=== PATIENT | female | born 1980 | race Caucasian/White ===

== ENCOUNTER 2022-08-03 12:21 | Emergency (ER) | payer BC, SELFPAY ==
[2022-08-03 12:48] VITALS: BP 116/67; PULSE 69; RESP 16; TEMP 36.1; O2SAT 100
--- NOTE | 2022-08-03 13:00 | ED.URI ---
HPI - URI/Sore Throat General Chief Complaint: Upper Respiratory Infection Stated Complaint: congestion,cough Time Seen by Provider: 08/03/22 12:57 Source: patient Mode of arrival: ambulatory Limitations: no limitations History of Present Illness HPI Narrative: Patient is a 41-year-old female presenting with 4 days of ear pain, cough, sore throat, congestion. 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 Denies any headache. Related Data Home Medications Medication Instructions Recorded Confirmed ibuprofen 800 mg tablet 800 mg PO TID 08/03/22 08/03/22 insulin lispro 100 unit/mL See Rx Instructions .Route .COMPLEX 08/03/22 08/03/22 subcutaneous solution (Humalog U-100 Insulin) Allergies Allergy/AdvReac Type Severity Reaction Status Date / Time sulfamethoxazole Allergy Hives Verified 08/03/22 12:50 [From Bactrim] trimethoprim [From Bactrim] Allergy Hives Verified 08/03/22 12:50 Review of Systems Review of Systems: All systems reviewed & are unremarkable except as noted in HPI and below Constitutional: Constitutional: Denies body ache(s), Denies fever(s), Denies headache(s), Denies malaise and Denies weakness Eyes: Eyes: Reports no additional eye complaints and Denies loss of vision ENT: Reports system reviewed and no additional complaints, except as documented, Reports otalgia, Denies headache(s), Reports nasal congestion, Denies sinus pain and Reports sore throat Cardiovascular: Cardiovascular: Reports no additional cardiovascular complaints, Denies chest pain, Denies irregular heart rhythm and Denies dyspnea Respiratory: Respiratory: Reports no additional respiratory complaints, Reports cough and Denies dyspnea Gastrointestinal: Gastrointestinal: Reports no additional gastrointestinal complaints, Denies abdominal pain, Denies melena, Denies hematochezia, Denies diarrhea, Denies nausea and Denies vomiting Musculoskeletal: Musculoskeletal: Reports no additional musculoskeletal complaints, Denies back pain, Denies myalgias and Denies arthralgias Integumentary/Breasts: Skin/Breast: Reports system reviewed and no additional complaints, except as docu, Denies pruritus and Denies rash Neurologic: Reports system reviewed and no additional complaints, except as documented, Denies headache(s), Denies loss of vision and Denies weakness Psychiatric: Psychiatric: Reports no additional psychiatric complaints PMFSH Comments At time of signature, agree with nursing past medical, surgical, social and family history. There is no relevant family history pertinent to the presenting complaint. Exam Const: General: cooperative, healthy appearing, comfortable, no acute distress and well nourished Nutritional Appearance: well nourished Orientation/consciousness: patient oriented x3 Limitations: no limitations HENMT: Head: normal to inspection, normocephalic and atraumatic Ears: external ears normal and TM abnormal bulging bilateral and erythematous bilateral Face/Nose/Sinus: Normal external nose present, normal facial exam, sinuses nontender and face symmetric Face and sinus: normal facial exam, sinuses nontender and face symmetric Mouth: Yes Normal oral and palatal mucosa present, Yes lip normal and Yes moist mucous membranes Teeth and gingiva: dentition normal Throat: posterior oropharynx normal, tonsils normal and uvula midline Eyes: General: appearance normal, both eyes and all related structures Alignment and Position: alignment normal and position normal Periorbital: periorbital findings normal Eyelids: eyelids normal Pupils: Equal, round and reactive pupils present Neck: Neck: normal visual inspection, full ROM and supple Chest: Chest palpation & inspection: normal inspection of the chest and normal palpation of entire chest wall Resp: Effort & Inspection: normal respiratory effort and able to speak in complete sentences Auscultation: clear to auscultation bilaterally, no crackles, no rales, no rhonchi
== END 2022-08-03 13:11 | disposition home or self-care (01) ==
PROVIDERS: Emergency Provider Nurse Practitioner Family
DX: H66.90 Otitis media, unspecified, unspecified ear (principal); Z79.4 Long term (current) use of insulin; Z79.1 Long term (current) use of non-steroidal anti-inflammatories (NSAID)
CPT/HCPCS: 87081; 87880; 99213; G0463

== ENCOUNTER 2023-04-25 08:59 | Emergency (ER) | payer BC, SELFPAY ==
[2023-04-25 09:14] VITALS: BP 121/69; PULSE 69; RESP 20; TEMP 36.4; O2SAT 100
[2023-04-25 09:37] LABS: Glucose Point of Care 198 mg/dl (65-105)
--- NOTE | 2023-04-25 09:45 | ED.GENADULT ---
HPI - General Adult General Chief complaint: Recheck/Abnormal Lab/Rx Stated complaint: High blood sugar Time Seen by Provider: 04/25/23 09:40 Source: patient, RN notes reviewed and old records reviewed Mode of arrival: ambulatory Limitations: no limitations History of Present Illness HPI narrative: 42 year old female presents to [facility] care reporting that her blood sugars have been up and down for the past 24 hours. She states that she awoke today and her Dexcom reading showed HI, she has insulin pump connected to her readings which does dose her along with basal rate. She called her physician and he he told her to go somewhere and get checked out. Patient reports that she has had a little sore throat but no fevers, chills or sweats. Patient reports that she doesn't want to go to the hospital. Presently Dexcom reading 180. Finger stick done in clinic showing 198. Patient reports that she changed site of Dexcom, put in new insulin and does not appear to be any kinks in her system. Patient has not called her director global intelligence which is located in [facility]. Patient reports that she drank latte this morning only. MD complaint: elevated glucose levels Onset (ago): day(s) (intermittently 1 day) Related Data Home Medications Medication Instructions Recorded Confirmed insulin lispro 100 unit/mL See Rx Instructions .Route .COMPLEX 08/03/22 04/25/23 subcutaneous solution (Humalog U-100 Insulin) blood-glucose transmitter (Dexcom 04/25/23 04/25/23 G6 Transmitter device) Allergies Allergy/AdvReac Type Severity Reaction Status Date / Time sulfamethoxazole Allergy Hives Verified 04/25/23 09:07 [From Bactrim] trimethoprim [From Bactrim] Allergy Hives Verified 04/25/23 09:07 Review of Systems Review of Systems: CONSTITUTIONAL: Denies fever, chills, or sweats. EYES: Denies visual changes, redness, or discharge. ENT: Denies rhinorrhea, congestion, mild sore throat, no otalgia. CARDIOVASCULAR: Denies chest pain, palpitations, or edema. RESPIRATORY: Denies cough or dyspnea. GASTROINTESTINAL: Denies abdominal pain, nausea, vomiting, or diarrhea. GENITOURINARY: Denies dysuria or hematuria. SKIN: Denies rash or itching. MUSCULOSKELETAL: Some chronic back pain, joint pain, or myalgia. NEUROLOGIC: Denies headache, numbness, or weakness. PSYCHIATRIC: Denies anxiety or depression. 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 There is no relevant family history pertinent to the presenting complaint Exam Narrative: GENERAL: Well-appearing, well-nourished, and in no acute distress. HEAD: Normocephalic, atraumatic. EYES: PERRLA and EOMI. ENT: Nares clear, no rhinorrhea or epistaxis. Mucous membranes moist.TM's normal, throat pink with no swelling some post nasal drainage NECK: Supple. no lymphadenopathy CHEST: Clear to auscultation. No respiratory distress. no cough noted SAO2 100% on room air HEART: Regular rate and rhythm. No murmur heard. Normal peripheral pulses. ABDOMEN: Soft, nontender, nondistended, normal active bowel sounds, denies any urinary symptoms. EXTREMITIES: Normal range of motion. No edema. SKIN: Warm, dry, no rash. NEURO: No focal deficits. Alert and oriented x3. Course Course Emergency Course: Patient is aware of diagnosis, understands and agrees to treatment plan.? Anticipatory guidance given.? Patient agrees to follow-up
== END 2023-04-25 10:33 | disposition home or self-care (01) ==
PROVIDERS: Emergency Provider Registered Nurse; PCP Family Medicine
DX: E10.65 Type 1 diabetes mellitus with hyperglycemia (principal); Z79.4 Long term (current) use of insulin
CPT/HCPCS: 82948; 87081; 87880; 99213; G0463

== ENCOUNTER 2023-06-08 12:11 | Emergency (ER) | payer BC, SELFPAY ==
--- NOTE | ~2023-06-08 | XR_ITS ---
Left ankle Technique: AP, oblique, and lateral views were obtained. Clinical History: Pain Findings: No acute fracture or dislocation is seen. Osseous alignment is anatomic. Ankle mortise and other visualized joint spaces are preserved. Soft tissues are otherwise unremarkable. Impression: Unremarkable left ankle. Reviewed, dictated and finalized at location . 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
--- NOTE | ~2023-06-08 | XR_ITS ---
Left foot Technique: AP, oblique, and lateral views were obtained. Clinical History: Pain Findings: No acute fracture or dislocation is seen. Osseous alignment is anatomic. Joint spaces are p reserved without erosive or degenerative change. Soft tissues are unremarkable. Impression: Unremarkable left foot radiographs. Reviewed, dictated and finalized at location . 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
[2023-06-08 12:17] VITALS: BP 96/57; PULSE 75; RESP 16; TEMP 36.6; O2SAT 100
--- NOTE | 2023-06-08 12:24 | ED.LOWEXIN ---
HPI - Extremity Injury (Lower) General Chief Complaint: Extremity Injury, Lower Stated Complaint: INJURED L ANKLE Time Seen by Provider: 06/08/23 12:24 Source: patient Mode of arrival: ambulatory Limitations: no limitations History of Present Illness HPI Narrative: 42-year-old female presents with complaint of pain to lateral aspect of left ankle. Patient states while leaving her son's school today she missed last step and twisted left ankle. Was able to get up on her own. Ambulatory with steady gait. Patient reports history of previous fracture to left ankle and foot over 20 years ago. Patient requesting x-rays. Range of motion and distal neurovascularly intact. All systems reviewed and negative except as noted above. Related Data Home Medications Medication Instructions Recorded Confirmed insulin lispro 100 unit/mL See Rx Instructions .Route .COMPLEX 08/03/22 06/08/23 subcutaneous solution (Humalog U-100 Insulin) blood-glucose transmitter (Dexcom 04/25/23 06/08/23 G6 Transmitter device) Allergies Allergy/AdvReac Type Severity Reaction Status Date / Time sulfamethoxazole Allergy Hives Verified 06/08/23 12:24 [From Bactrim] trimethoprim [From Bactrim] Allergy Hives Verified 06/08/23 12:24 Review of Systems Review of Systems: CONSTITUTIONAL: Denies fever, chills, or sweats. EYES: Denies visual changes, redness, or discharge. ENT: Denies rhinorrhea, congestion, sore throat, or otalgia. CARDIOVASCULAR: Denies chest pain, palpitations, or edema. RESPIRATORY: Denies cough or dyspnea. GASTROINTESTINAL: Denies abdominal pain, nausea, vomiting, or diarrhea. GENITOURINARY: Denies dysuria or hematuria. SKIN: Denies rash or itching. MUSCULOSKELETAL: Denies back pain or myalgia. Reports pain to left ankle. NEUROLOGIC: Denies headache, numbness, or weakness. PSYCHIATRIC: Denies anxiety or depression. All other systems reviewed are negative, except as documented in HPI. 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 There is no relevant family history pertinent to the presenting complaint. Exam Narrative: GENERAL: This is a well-nourished, well-developed patient, in no apparent distress. HEAD: normocephalic, atraumatic. EYES: PERRL. Sclera clear/white. Vision is grossly intact. EARS: External ears normal NOSE: External nose normal NECK: Neck supple, non-tender without lymphadenopathy, masses or thyromegaly. CARDIOVASCULAR: Regular rate and rhythm without murmurs, gallops, or rubs. RESPIRATORY: Clear to auscultation. Breath sounds equal bilaterally. No wheezes, rales, or rhonchi. SKIN: warm, Dry, intact with no suspicious lesions or rash, good texture and turgor. NEURO: awake, alert, and oriented to person, place and time. There were no obvious focal neurologic abnormalities. EXTREMITIES: Tenderness to lateral aspect left ankle and left foot. No swelling or contusion noted. Range of motion and distal neurovascularly intact. Course Course Level of Care: Express Care Visit Vital Signs Vital signs: Vital Signs Temperature 36.6 C 06/08/23 12:17 Pulse Rate 75 06/08/23 12:17 Respiratory Rate 16 06/08/23 12:17 Blood Pressure 96/57 L 06/08/23 12:17 Pulse Oximetry 100 06/08/23 12:17 Temperature 36.6 C 06/08/23 12:17 Pulse Rate 75 06/08/23 12:17 Respiratory Rate 16 06/08/23 12:17 Blood Pressure 96/57 L 06/08/23 12:17 Pulse Oximetry 100
== END 2023-06-08 13:00 | disposition home or self-care (01) ==
PROVIDERS: Emergency Provider Nurse Practitioner Family; PCP Family Medicine
DX: S93.402A Sprain of unspecified ligament of left ankle, initial encounter (principal); S93.602A Unspecified sprain of left foot, initial encounter; E10.9 Type 1 diabetes mellitus without complications; Z79.4 Long term (current) use of insulin; X50.0XXA Overexertion from strenuous movement or load, initial encounter
CPT/HCPCS: 73610; 73630; 99213; G0463

== ENCOUNTER 2023-07-23 08:13 | Emergency (ER) | payer BC, SELFPAY ==
--- NOTE | 2023-07-23 08:15 | ED.URI ---
HPI - URI/Sore Throat General Chief Complaint: Upper Respiratory Infection Stated Complaint: EARS/CHEST Time Seen by Provider: 07/23/23 08:15 Source: patient Mode of arrival: ambulatory Limitations: no limitations History of Present Illness HPI Narrative: Irene is a 42-year-old female patient presenting to the clinic today with complaints of ear discomfort, cough, and chest congestion times 2-3 days. She reports no known fever but has had body aches and chills. States that her chest feels heavy. Related Data Home Medications Medication Instructions Recorded Confirmed insulin lispro 100 unit/mL See Rx Instructions .Route .COMPLEX 08/03/22 07/23/23 subcutaneous solution (Humalog U-100 Insulin) blood-glucose transmitter (Dexcom 04/25/23 07/23/23 G6 Transmitter device) Allergies Allergy/AdvReac Type Severity Reaction Status Date / Time sulfamethoxazole Allergy Hives Verified 06/08/23 12:24 [From Bactrim] trimethoprim [From Bactrim] Allergy Hives Verified 06/08/23 12:24 Review of Systems Review of Systems: Pertinent positives per HPI. Patient denies any fever, rash, headache, visual changes, dizziness, chest pain, palpitations, nausea, vomiting, diarrhea, constipation, abdominal pain, or any urinary issues. 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 There is no relevant family history pertinent to the patient complaint. Exam Narrative: General: Well-developed, well nourished, in no apparent distress Head: Normocephalic, atraumatic Eyes: Pupils equally round and reactive to light bilaterally, EOM intact, sclera and conjunctive clear, no discharge, lids normal Ears: TMs intact and congested, ear canals clear, no drainage, grossly hearing normal. Nose: Nares patent, clear discharge, no inflammation, no sinus tenderness. Mouth: Oropharynx without lesions or masses, good dentition, MMM. Postnasal drip Neck: Supple, trachea midline, no enlargement of anterior or posterior cervical nodes, no thyroid masses or goiter palpable. Cardio: Regular rate and rhythm, s1 and s2 normal, no murmur appreciated. Resp: Clear to auscultation bilaterally anteriorly and posteriorly, no rhonchi, rales, wheezing or rubs Course Course Emergency Course: Portions of this record may have been created with voice recognition software. Level of Care: Express Care Visit Vital Signs Vital signs: Vital signs reviewed MDM - URI/Sore Throat MDM Narrative Medical decision making narrative: At the time of visit patient is resting comfortably on the exam table. Patient appears to be nontoxic. Labs: COVID testing was positive. Influenza testing was negative. Plan: I suspect patient has COVID. Work note was given. supportive measures were discussed with the patient and they voiced understanding discharge instructions and agrees to treatment plan. Return precautions reviewed Differential Diagnosis Differential diagnosis: Likely upper respiratory infection, otitis media, sinusitis, viral infection, bronchitis, influenza, pharyngitis and other (COVID) Discharge Plan Discharge Clinical Impression: COVID-19 Patient Disposition: Home, Self-Care Condition: Stable Instructions: Antibiotic Form, COVID-19 (Coronavirus Disease 2019) (ED), How to Recover from COVID-19 at Home (ED) Additional Instructions: COVID testing is positive in the clinic today. Influe
[2023-07-23 08:31] VITALS: BP 114/60; PULSE 100; RESP 16; TEMP 36.8; O2SAT 100
== END 2023-07-23 08:56 | disposition home or self-care (01) ==
PROVIDERS: Emergency Provider Nurse Practitioner Family; PCP Family Medicine
DX: U07.1 COVID-19 (principal); E10.9 Type 1 diabetes mellitus without complications; Z79.4 Long term (current) use of insulin
CPT/HCPCS: 87426; 87804; 99213; G0463

== ENCOUNTER 2024-10-02 14:28 | Outpatient (CLI) | payer BC, SELFPAY ==
--- NOTE | ~2024-10-02 | MR_ITS ---
MRI of the left shoulder Technique: Axial proton-density fat-sat images, coronal proton density fat-sat and T2 fat-sat images, and sagittal T1-weighted and T2 fat-sat images were acquired. Clinical History: Pain Findings: There is minimal AC joint degenerative change. Coracoclavicular, coracoacromial, and coraco humeral ligaments are intact. Supraspinatus and infraspinatus tendons are intact, without partial or full-thickness tear. Subscapul daria tendon is intact. Tendon of the long head of the biceps is intact. Questionable tiny undersurface superior labral tear. No anterior or posterior extension. There is thickening and increased signal inferior glenohumeral ligament. No degenerative change or ef fusion of the glenohumeral joint. No fluid distention of the subacromial/subdeltoid bursa. No muscle atrophy or edema. Impression: Probable adhesive capsulitis. Questionable tiny undersurface superior labral tear. Reviewed, dictated and finalized at [facility]. Impression: Probable adhesive capsulitis. Questionable tiny undersurface superior labral tear.
== END 2024-10-02 14:29 | disposition home or self-care (01) ==
PROVIDERS: PCP Family Medicine; Visit Provider Orthopaedic Surgery
DX: M25.512 Pain in left shoulder (principal)
CPT/HCPCS: 73221